=== PATIENT | female | born 1990 | race African-American/Black ===

== ENCOUNTER 2016-08-16 17:29 | Emergency (ER) | payer MEDICAID ==
[~2016-08-16] VITALS: Ht 162.6 cm; Wt 68.0 kg
[2016-08-16] MEDS ORDERED: ACETAMINOPHEN WITH CODEINE 300/30MG TABLET PO ONE (23:15)
[2016-08-17 01:40] VITALS: BP 121/78
== END 2016-08-17 01:42 | disposition home or self-care (01) ==
LOC: ER 17:30
DX: S83.91XA Sprain of unspecified site of right knee, initial encounter (principal); W01.0XXA Fall on same level from slipping, tripping and stumbling without subsequent striking against object, initial encounter; Y92.018 Other place in single-family (private) house as the place of occurrence of the external cause
CPT/HCPCS: 73562; 81025; 99284; L1830